=== PATIENT | male | born 1985 | race Caucasian/White ===

== ENCOUNTER 2018-05-22 11:50 | Day surgery (SDC) | payer OTHER ==
[~2018-05-22] VITALS: Ht 180.3 cm; Wt 90.9 kg
[2018-05-22 12:44] LABS: HEMATOCRIT 45.4 % (42.0-52.0); HEMOGLOBIN 16.1 g/dl (13.5-18.0); MEAN CELL VOLUME 88 fl (80.0-100.0); MEAN CORPUSCULAR HEMOGLOBIN 31 pg (27.0-31.0); MEAN CORPUSCULAR HGB CONC 36 g/dl (33.0-37.0); MEAN PLATELET VOLUME 9.6 fl (7.4-10.4); PLATELET COUNT 328 K/mm3 (130-400); RED BLOOD COUNT 5.19 M/mm3 (4.20-5.60); REDCELL DISTRIBUTION WIDTH-CV 12.3 % (11.5-14.5)
[2018-05-22 12:51] LABS: ALBUMIN 4.6 gm/dL (3.5-5.0); BILIRUBIN,TOTAL 1.4 mg/dL (0.0-1.0); C-REACTIVE PROTEIN 1.6 mg/dL (0.0-0.9); CALCIUM 10.2 mg/dL (8.4-10.2); CREATININE, serum 0.79 mg/dL (0.66-1.25); POTASSIUM 4.2 mmol/L (3.4-5.0)
[2018-05-22 12:55] LABS: BASO % 0.2 % (0.0-2.0); GRAN % 88.9 % (42.2-75.2); LYMPH # 1.1 (1.2-3.4); LYMPH % 4.8 % (20.0-51.0); MONO # 1.3 (0.1-0.6); MONO % 5.5 % (1.7-9.3)
[2018-05-22 13:53] LABS: COLLECTION METHOD CLEAN CATCH
[2018-05-22 14:00] LABS: PH 8 (5-8); SQUAMOUS EPITHELIAL None Seen /hpf; URINE APPEARANCE Clear; URINE BACTERIA None Seen /hpf; URINE BILIRUBIN Negative (NEGATIVE); URINE BLOOD Negative (NEGATIVE); URINE COLOR Yellow; URINE GLUCOSE Negative (NEGATIVE); URINE KETONE 1+ (NEGATIVE); URINE LEUKOCYTE ESTERASE Negative (NEGATIVE); URINE NITRATE Negative (NEGATIVE); URINE PROTEIN(semi-quant) Negative (NEGATIVE); URINE RBC 0-2 /hpf; URINE UROBILINOGEN Negative (NEGATIVE)
[2018-05-22 16:54] VITALS: BP 147/99; PULSE 59
[2018-05-22 17:09] VITALS: BP 148/89; PULSE 62
[2018-05-22 17:24] VITALS: BP 146/88; PULSE 64
[2018-05-22 17:39] VITALS: BP 151/88; PULSE 58
[2018-05-22 20:34] VITALS: BP 140/81; PULSE 78; TEMP 99.5
[2018-05-23 03:55] VITALS: BP 146/87; PULSE 76; TEMP 98.2
[2018-05-23 08:01] VITALS: BP 140/82; PULSE 71; TEMP 98.8
[2018-05-23] MEDS ORDERED: NORCO 325 MG-51 TAB PO (08:23)
== END 2018-05-23 09:27 | disposition home or self-care (01) ==
LOC: COL.ER 11:50 → SDCO 14:05 → MEDICAL 14:05 → SDCO 05-23 09:27
PROVIDERS: Physician Assistant
DX: D3A.020 Benign carcinoid tumor of the appendix (principal); K35.80 Unspecified acute appendicitis; Z88.1 Allergy status to other antibiotic agents
CPT/HCPCS: OP; J1885; J1956; J2405; J2704; J3010; J7030; J7120; Q9967